=== PATIENT | female | born 1985 | race Caucasian/White ===

== ENCOUNTER 2019-04-03 20:54 | Emergency (ER) | payer SELFPAY ==
[2019-04-03] MEDS ORDERED: KETOROLAC 30 MG/ML INJ ONE (21:40)
[2019-04-03] MEDS ORDERED: CLINDAMYCIN IV 150 MG/ML (4 mL) VIAL ONE (21:40)
--- NOTE | 2019-04-03 22:06 | ER ---
Nurse's Notes [facility] Name: Saloni Ireland Age: 34 yrs Sex: Female : 1985 Arrival Date: 04/03/2019 Time: 20:57 Bed 26 Private MD: Diagnosis: Cellulitis of finger Presentation: 04/03 21:07 Presenting complaint: Patient states: I was moving palm and the palm frond thing stuck la1 in the base of my index finger on my right hand, now it hurts to bend that joint. Transition of care: patient was not received from another setting of care. Onset of symptoms was April 03, 2019. Risk Assessment: Do you want to hurt yourself or someone else? Patient reports no desire to harm self or others. Initial Sepsis Screen: Does the patient meet any 2 criteria? No. Patient's initial sepsis screen is negative. Does the patient have a suspected source of infection? No. Patient's initial sepsis screen is negative. Care prior to arrival: None. 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 - Social history:: Smoking status: Patient uses tobacco products, smokes one-half pack cigarettes per day. - Ebola Screening: : No symptoms or risks identified at this time. Screenin:10 Abuse screen: Denies threats or abuse. Nutritional screening: No deficits noted. la1 Tuberculosis screening: No symptoms or risk factors identified. Fall Risk None identified. Assessment: 21:09 General: Appears in no apparent distress. Behavior is calm, cooperative. Pain: la1 Complains of pain in dorsal aspect of proximal phalanx of right index finger. Neuro: Level of Consciousness is awake, alert, obeys commands, Oriented to person, place, time, situation. Cardiovascular: Capillary refill < 3 seconds Patient's skin is warm and dry. Respiratory: Airway is patent Respiratory effort is even, unlabored, Respiratory pattern is regular, symmetrical. GI: No signs and/or symptoms were reported involving the gastrointestinal system. : No signs and/or symptoms were reported regarding the genitourinary system. Musculoskeletal: Circulation, motion, and sensation intact. Capillary refill < 3 seconds, is brisk, in bilateral fingers. Range of motion: intact in all extremities, Swelling present in dorsal aspect of proximal phalanx of right index finger. Vital Signs: 21:08 BP 121 / 69; Pulse 86; Resp 16; Temp 98.6; Pulse Ox 100% on R/A; Weight 65.77 kg; la1 Height 5 ft. 7 in. (170.18 cm); 22:16 BP 118 / 66; Pulse 79; Resp 15; Temp 98.5; Pulse Ox 100% on R/A; rv 21:08 Body Mass Index 22.71 (65.77 kg, 170.18 cm) la1 ED Course: 20:57 Patient arrived in ED. cf2 21:01 Timothy Cavanaugh MD is Attending Physician. tw4 21:02 Lamberto Rodriguez RN is Primary Nurse. la1 21:07 Triage completed. la1 21:09 Arm band placed on left wrist. la1 21:10 Patient has correct armband on for positive identification. la1 22:16 No provider procedures requiring assistance completed. Patient did not have IV access rv during this emergency room visit. Administered Medications: 21:46 Drug: TORadol 60 mg Route: IM; Site: right gluteus; la1 22:16 Follow up: Response: No adverse reaction rv 21:46 Drug: Clindamycin 600 mg Route: IM; Site: left gluteus; la1 22:16 Follow up: Response: No adverse reaction rv Outcome: 22:05 Discharge ordered by . tw4 22:17 Discharged to home ambulatory, with family. rv 22:17 Condition: good 22:17 Discharge instructions given to patient, Instructed on discharge instructions, follow up and referral plans. medication usage, Demonstrated understanding of instructions, follow-up care, medications, Prescriptions given X 2. 22:17 Patient left the ED. rv Signatures: Labmerto Rodriguez RN RN la1 Timothy Cavanaugh MD MD tw4 Ady Liu RN RN rv [place], [place] cf2
--- NOTE | 2019-04-03 22:07 | EDPHYS ---
Physician Documentation [facility] Name: Saloni Ireland Age: 34 yrs Sex: Female : 1985 Arrival Date: 04/03/2019 Time: 20:57 Bed 26 Private MD: ED Physician Timothy Cavanaugh HPI: 04/04 01:57 This 34 yrs old Female presents to ER via Ambulatory with complaints of Hand tw4 Pain. 01:57 The patient or guardian reports a puncture wound, thorn. The complaints affect the MCP tw4 of right index finger. Context: The problem was sustained outdoors, resulted from puncture wound. Onset: The symptoms/episode began/occurred today. Modifying factors: The symptoms are alleviated by nothing, the symptoms are aggravated by movement. Associated signs and symptoms: The patient has no apparent associated signs or symptoms. The patient has not experienced similar symptoms in the past. 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 - Social history:: Smoking status: Patient uses tobacco products, smokes one-half pack cigarettes per day. - Ebola Screening: : No symptoms or risks identified at this time. ROS: 04/04 01:57 Constitutional: Negative for fever, chills, and weight loss, Eyes: Negative for injury, tw4 pain, redness, and discharge, Cardiovascular: Negative for chest pain, palpitations, and edema, Respiratory: Negative for shortness of breath, cough, wheezing, and pleuritic chest pain, Abdomen/GI: Negative for abdominal pain, nausea, vomiting, diarrhea, and constipation, Skin: Negative for injury, rash, and discoloration, Neuro: Negative for headache, weakness, numbness, tingling, and seizure. MS/extremity: Positive for decreased range of motion, pain, puncture. Exam: 01:57 Constitutional: This is a well developed, well nourished patient who is awake, alert, tw4 and in no acute distress. Head/Face: Normocephalic, atraumatic. Cardiovascular: Regular rate and rhythm with a normal S1 and S2. No gallops, murmurs, or rubs. Normal PMI, no JVD. No pulse deficits. Respiratory: Lungs have equal breath sounds bilaterally, clear to auscultation and percussion. No rales, rhonchi or wheezes noted. No increased work of breathing, no retractions or nasal flaring. Abdomen/GI: Soft, non-tender, with normal bowel sounds. No distension or tympany. No guarding or rebound. No evidence of tenderness throughout. Neuro: Awake and alert, GCS 15, oriented to person, place, time, and situation. Cranial nerves II-XII grossly intact. Motor strength 5/5 in all extremities. Sensory grossly intact. Cerebellar exam normal. Normal gait. Psych: Awake, alert, with orientation to person, place and time. Behavior, mood, and affect are within normal limits. 01:57 Musculoskeletal/extremity: Extremities: noted in the dorsal aspect of proximal phalanx of right index finger: decreased ROM, pain, puncture. Vital Signs: 04/03 21:08 BP 121 / 69; Pulse 86; Resp 16; Temp 98.6; Pulse Ox 100% on R/A; Weight 65.77 kg; la1 Height 5 ft. 7 in. (170.18 cm); 22:16 BP 118 / 66; Pulse 79; Resp 15; Temp 98.5; Pulse Ox 100% on R/A; rv 21:08 Body Mass Index 22.71 (65.77 kg, 170.18 cm) la1 MDM: 21:01 Patient medically screened. tw4 04/04 01:57 Differential diagnosis: closed fracture, contusion, abrasion, tendonitis. Data tw4 reviewed: vital signs, nurses notes. Counseling: I had a detailed discussion with the patient and/or guardian regarding: the historical points, exam findings, and any diagnostic results supporting the discharge/admit diagnosis, lab results. Medication response: Special discussion: I discussed with the patient/guardian in detail that at this point there is no indication for admission to the hospital. It is understood, however, that if the symptoms persist or worsen the patient needs to return immediately for re-evaluation. Administered Medications: 04/03 21:46 Drug: TORadol 60 mg Route: IM; Site: right gluteus; la1 22:16 Follow up: Response: No adverse reaction rv 21:46 Drug: Clindamycin 600 mg Route: IM; Site: left gluteus; la1 22:16 Follow up: Response: No adverse reaction rv Disposition: 04/03/19 22:05 Discharged to Home. Impression: Cellulitis of finger. - Condition is Stable. - Discharge Instructions: Cellulitis, Adult. - Prescriptions for Clindamycin HCl 300 mg Oral Capsule - take 1 capsule by ORAL route every 6 hours for 10 days; 40 capsule. Ibuprofen 800 mg Oral Tablet - take 1 tablet by ORAL route every 8 hours As needed take with food; 30 tablet. - Medication Reconciliation Form, Thank You Letter, Antibiotic Education, Prescription Opioid Use form. - Follow up: Private Physician; When: Upon discharge from the Emergency Department; Reason: If symptoms return, Recheck today's complaints, Continuance of care. - Problem is new. - Symptoms have improved. Signatures: Lamberto Rodriguez, RN RN la1 Timothy Cavanaugh MD MD tw4 Ady Liu RN RN rv Corrections: (The following items were deleted from the chart) 22:17 22:05 04/03/2019 22:05 Discharged to Home. Impression: Cellulitis of finger. Condition rv is Stable. Forms are Medication Reconciliation Form, Thank You Letter, Antibiotic Education, Prescription Opioid Use. Follow up: Private Physician; When: Upon discharge from the Emergency Department; Reason: If symptoms return, Recheck today's complaints, Continuance of care. Problem is new. Symptoms have improved. tw4
[2019-04-03 23:01] VITALS: O2SAT 100
[2019-04-03 23:03] VITALS: BP 118/66; TEMP 98.5
== END 2019-04-03 22:17 | disposition home or self-care (01) ==
LOC: ER 20:54
DX: L03.011 Cellulitis of right finger (principal); F17.210 Nicotine dependence, cigarettes, uncomplicated
CPT/HCPCS: 96372; 99283; S0077

== ENCOUNTER 2019-04-26 11:48 | Emergency (ER) | payer SELFPAY ==
[2019-04-26 12:30] LABS: Urine Blood 3+ (NEG); Urine Glucose NEGATIVE (NEG); Urine Protein NEGATIVE (NEG); Urine Specific Gravity <1.005 (1.005-1.030); Urine pH 6.5 (5.0-7.0)
[2019-04-26 12:43] LABS: Urine Bacteria 20-50 /HPF (<20); Urine Culture Reflex Order REFLEXED; Urine RBC <5 /HPF (NONE SEEN)
[2019-04-26] MEDS ORDERED: NA CHLORIDE 0.9% 1,000 ML ONE (12:47)
[2019-04-26] MEDS ORDERED: CEFTRIAXONE/SWI 1gm 1 GM/10 ML SYR ONE (12:47)
[2019-04-26 12:59] LABS: Absolute Lymphocytes (CBC) 1.6 K/uL (0.7-4.9); Basophils % 0.6 % (0-1.3); Hematocrit 35.7 % (36.0-45.0); Lymphocytes % 15.3 % (15.3-44.8); MPV 8.2 fL (7.6-11.3); RBC Red Blood Cell Count 4.06 M/uL (3.86-4.86)
[2019-04-26 13:08] LABS: ALT/SGPT 21 U/L (12-78); AST/SGOT 13 U/L (15-37); Alkaline Phosphatase 67 U/L (45-117); BUN Blood Urea Nitrogen 9 mg/dL (7-18); Bicarbonate 26 mmol/L (21-32); Bilirubin Direct < 0.1 mg/dL (0-0.2); Bilirubin Total 0.3 mg/dL (0.2-1.0); Glucose Level 69 mg/dL (74-106); Lipase 78 U/L (73-393); Potassium 3.7 mmol/L (3.5-5.1); Protein, Total 7.5 g/dL (6.4-8.2); Sodium Level 141 mmol/L (136-145)
--- NOTE | 2019-04-26 13:39 | RAD REPORT ---
EXAM DESCRIPTION: CT - Abdomen Pelvis W Contrast - 04/26/2019 1:25 pm CLINICAL HISTORY: Abdominal pain/hematuria COMPARISON: 2008 TECHNIQUE: Computed axial tomography of the abdomen pelvis was obtained. 100 cc Isovue-300 was admin istered intravenously. Oral contrast was not requested which limits evaluation of bowel. All CT scans are performed using dose optimization technique as appropriate and may include automated exposure control or mA/KV adjustment according to patient size. FINDINGS: The liver, spleen, pancreas, and adrenals appear unremarkable. Right kidney unremarkable. Enhancement of the wall of the left renal pelvis and proximal left ureter There is no evidence of diverticulitis. Normal appendix Small umbilical hernia IMPRESSION: Enhancement of the wall of the left renal pelvis and proximal left ureter can indicate i nfection/inflammation
--- NOTE | 2019-04-26 14:10 | EDPHYS ---
Physician Documentation [facility] Name: Saloni Ireland Age: 34 yrs Sex: Female : 1985 Arrival Date: 04/26/2019 Time: 11:51 Bed 11 Private MD: None, None ED Physician Sameer Casillas HPI: 04/26 12:06 This 34 yrs old Female presents to ER via Ambulatory with complaints of pm1 Urinary Problem. 12:06 The patient presents with urinary symptoms, Burning with urination. pm1 12:06 Onset: The symptoms/episode began/occurred 2 day(s) ago. Modifying factors: The pm1 symptoms are alleviated by nothing, the symptoms are aggravated by urinating. Associated signs and symptoms: Pertinent positives: left flank pain, suprapubic pain, Pertinent negatives: diarrhea, fever, nausea, vomiting. Severity of symptoms: in the emergency department the symptoms are actually worse. The patient has experienced a previous episode, and the symptoms today are exactly the same, many years ago. The patient has not recently seen a physician. 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 - Social history:: Smoking status: Patient/guardian denies using tobacco. - Ebola Screening: : No symptoms or risks identified at this time. ROS: 12:06 Positive for flank pain, burning with urination, Negative for vaginal bleeding, pm1 vaginal discharge. 12:06 Constitutional: Negative for fever, chills, and weight loss, Neck: Negative for injury, pain, and swelling, Cardiovascular: Negative for chest pain, palpitations, and edema, Respiratory: Negative for shortness of breath, cough, wheezing, and pleuritic chest pain, Abdomen/GI: Negative for abdominal pain, nausea, vomiting, diarrhea, and constipation. 12:06 MS/Extremity: Negative for injury and deformity, Skin: Negative for injury, rash, and discoloration. 12:06 Neuro: Negative for headache, weakness, numbness, tingling, and seizure. 12:06 Back: Positive for flank pain, on the left. 12:06 : Positive for flank pain, burning with urination, of the right low back. Exam: 12:06 Constitutional: This is a well developed, well nourished patient who is awake, alert, pm1 and in no acute distress. Head/Face: Normocephalic, atraumatic. Neck: Trachea midline, no thyromegaly or masses palpated, and no cervical lymphadenopathy. Supple, full range of motion without nuchal rigidity, or vertebral point tenderness. No Meningismus. Chest/axilla: Normal chest wall appearance and motion. Nontender with no deformity. No lesions are appreciated. Cardiovascular: Regular rate and rhythm with a normal S1 and S2. No gallops, murmurs, or rubs. Normal PMI, no JVD. No pulse deficits. Respiratory: Lungs have equal breath sounds bilaterally, clear to auscultation and percussion. No rales, rhonchi or wheezes noted. No increased work of breathing, no retractions or nasal flaring. Abdomen/GI: Soft, non-tender, with normal bowel sounds. No distension or tympany. No guarding or rebound. No evidence of tenderness throughout. 12:06 Skin: Warm, dry with normal turgor. Normal color with no rashes, no lesions, and no evidence of cellulitis. MS/ Extremity: Pulses equal, no cyanosis. Neurovascular intact. Full, normal range of motion. 12:06 Back: pain, that is mild, of the right low back, normal spinal alignment noted. 12:06 Neuro: Orientation: is normal, Motor: is normal, moves all fours. Vital Signs: 11:55 BP 122 / 88; Pulse 80; Resp 18; Temp 97.8; Pulse Ox 99% on R/A; Weight 68.04 kg; Height ph 5 ft. 7 in. (170.18 cm); Pain 7/10; 11:55 Body Mass Index 23.49 (68.04 kg, 170.18 cm) ph MDM: 11:58 Patient medically screened. pm1 14:08 Data reviewed: vital signs. Data interpreted: Pulse oximetry: on room air is 99 %. pm1 Interpretation: normal. Counseling: I had a detailed discussion with the patient and/or guardian regarding: the historical points, exam findings, and any diagnostic results supporting the discharge/admit diagnosis, lab results, radiology results, the need for outpatient follow up, to return to the emergency department if symptoms worsen or persist or if there are any questions or concerns that arise at home. 04/26 11:58 Order name: Urine Microscopic Only; Complete Time: 13:11 pm1 04/26 12:21 Order name: Urine Dipstick--Ancillary (enter results); Complete Time: 12:37 em1 04/26 12:26 Order name: Basic Metabolic Panel; Complete Time: 13:11 pm1 04/26 12:26 Order name: CBC with Diff; Complete Time: 13:11 pm1 04/26 12:26 Order name: Creatinine for Radiology; Complete Time: 13:11 pm1 04/26 12:26 Order name: Hepatic Function; Complete Time: 13:11 pm1 04/26 11:58 Order name: Urine Dipstick-Ancillary (obtain specimen); Complete Time: 12:13 pm1 04/26 12:26 Order name: Lipase; Complete Time: 13:11 pm1 04/26 12:26 Order name: Test, Serum; Complete Time: 13:36 pm1 04/26 12:26 Order name: CT Abd/Pelvis - IV Contrast Only; Complete Time: 14:03 pm1 04/26 12:44 Order name: Urine Culture [facility] 04/26 11:58 Order name: Urine Test (obtain specimen); Complete Time: 12:13 pm1 04/26 12:26 Order name: IV Saline Lock; Complete Time: 12:42 pm1 04/26 12:26 Order name: Labs collected and sent; Complete Time: 12:42 pm1 Administered Medications: 12:52 Drug: Rocephin 1 grams Route: IV; Rate: calculated rate; Site: right antecubital; ss 12:54 Follow up: IV Status: Completed infusion ss 12:52 Drug: NS 0.9% 1000 ml Route: IV; Rate: 1000 ml; Site: right antecubital; ss 14:23 Follow up: IV Status: Completed infusion; IV Intake: 1000ml ss 14:23 Drug: Cipro 500 mg Route: PO; ss 14:23 Follow up: Response: Medication administered at discharge. ss Disposition: 04/27 07:28 Co-signature as Attending Physician, Sameer Casillas MD I agree with the assessment and kdr plan of care. Disposition: 04/26/19 14:09 Discharged to Home. Impression: Urinary tract infection, site not specified - left sided pyelonephritis. - Condition is Stable. - Discharge Instructions: Pyelonephritis, Adult, Urinary Tract Infection, Adult. - Prescriptions for Cipro 500 mg Oral Tablet - take 1 tablet by ORAL route every 12 hours for 7 days; 14 tablet. - Work release form, Medication Reconciliation Form, Thank You Letter, Antibiotic Education, Prescription Opioid Use form. - Follow up: Emergency Department; When: As needed; Reason: Worsening of condition. Follow up: Private Physician; When: 2 - 3 days; Reason: Recheck today's complaints, Continuance of care, Re-evaluation by your physician. - Problem is new. - Symptoms have improved. Signatures: Dispatcher [employer] EDMS Sameer Casillas MD MD [facility] Yanely Calvillo RN RN ss Ai Parr RN RN Kieran Vazquez, SUDHAKAR CONSUMER LOAN UNDERWRITER pm1 Corrections: (The following items were deleted from the chart) 04/26 14:32 14:09 04/26/2019 14:09 Discharged to Home. Impression: Urinary tract infection, site ss not specified - left sided pyelonephritis. Condition is Stable. Forms are Medication Reconciliation Form, Thank You Letter, Antibiotic Education, Prescription Opioid Use. Follow up: Emergency Department; When: As needed; Reason: Worsening of condition. Follow up: Private Physician; When: 2 - 3 days; Reason: Recheck today's complaints, Continuance of care, Re-evaluation by your physician. Problem is new. Symptoms have improved. pm1
--- NOTE | 2019-04-26 14:10 | ER ---
Nurse's Notes [facility] Name: Saloni Ireland Age: 34 yrs Sex: Female : 1985 Arrival Date: 04/26/2019 Time: 11:51 Bed 11 Private MD: None, None Diagnosis: Urinary tract infection, site not specified-left sided pyelonephritis Presentation: 04/26 11:54 Presenting complaint: Patient states: Burning w/ urination and frequency x 2 days, ph blood in urine today, also c/o lower abdominal pain, denies fever, N/V. Transition of care: patient was not received from another setting of care. Onset of symptoms was April 26, 2019. Risk Assessment: Do you want to hurt yourself or someone else? Patient reports no desire to harm self or others. Initial Sepsis Screen: Does the patient meet any 2 criteria? No. Patient's initial sepsis screen is negative. Does the patient have a suspected source of infection? Yes: Dysuria/Frequency/Urgency/UTI. Care prior to arrival: None. 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 - Social history:: Smoking status: Patient/guardian denies using tobacco. - Ebola Screening: : No symptoms or risks identified at this time. Screenin:42 Abuse screen: Denies threats or abuse. Denies injuries from another. Nutritional ss screening: No deficits noted. Tuberculosis screening: Never had TB. Fall Risk None identified. Assessment: 12:00 General: Appears in no apparent distress. comfortable, well groomed, Behavior is calm, ph cooperative, appropriate for age, Denies fever, chills. Pain: Complains of pain in suprapubic area, right lower quadrant and left lower quadrant. Neuro: Level of Consciousness is awake, alert, obeys commands, Oriented to person, place, time, situation. Cardiovascular: Capillary refill < 3 seconds in bilateral fingers Patient's skin is warm and dry. Respiratory: Airway is patent Respiratory effort is even, unlabored. GI: Reports lower abdominal pain, Patient currently denies nausea, vomiting. : Reports burning with urination, pain in suprapubic area urinary frequency, blood in urine. Derm: Skin is intact, is healthy with good turgor, Skin is pink, warm \T\ dry. Musculoskeletal: Circulation, motion, and sensation intact. Range of motion: intact in all extremities. 12:42 Reassessment: labs sent, awaiting results. ss Vital Signs: 11:55 BP 122 / 88; Pulse 80; Resp 18; Temp 97.8; Pulse Ox 99% on R/A; Weight 68.04 kg; Height ph 5 ft. 7 in. (170.18 cm); Pain 7/10; 11:55 Body Mass Index 23.49 (68.04 kg, 170.18 cm) ph ED Course: 11:51 Patient arrived in ED. mr 11:51 None, None is Private Physician. mr 11:55 Triage completed. ph 11:56 Arm band placed on Patient placed in an exam room. ph 11:57 Kieran Abad NP is PHCP. pm1 11:57 Sameer Casillas MD is Attending Physician. pm1 12:13 Yanely Calvillo RN is Primary Nurse. ss 12:42 Patient has correct armband on for positive identification. Bed in low position. Call ss light in reach. 12:42 Inserted saline lock: 22 gauge in right antecubital area, using aseptic technique. ss Blood collected. 13:26 CT Abd/Pelvis - IV Contrast Only In Process Unspecified. EDMS 14:23 No provider procedures requiring assistance completed. IV discontinued, intact, ss bleeding controlled, No redness/swelling at site. Pressure dressing applied. Administered Medications: 12:52 Drug: Rocephin 1 grams Route: IV; Rate: calculated rate; Site: right antecubital; 12:54 Follow up: IV Status: Completed infusion 12:52 Drug: NS 0.9% 1000 ml Route: IV; Rate: 1000 ml; Site: right antecubital; ss 14:23 Follow up: IV Status: Completed infusion; IV Intake: 1000ml 14:23 Drug: Cipro 500 mg Route: PO; ss 14:23 Follow up: Response: Medication administered at discharge. Intake: 14:23 IV: 1000ml; Total: 1000ml. Outcome: 14:09 Discharge ordered by . pm1 14:23 Discharged to home ambulatory. 14:23 Condition: good 14:23 Discharge instructions given to patient, significant other, Instructed on discharge instructions, follow up and referral plans. medication usage, Demonstrated understanding of instructions, follow-up care, medications, Prescriptions given X 1. 14:32 Patient left the ED. Addendum: 04/29/2019 07:34 Addendum: Culture Results: Positive urine culture. No further action required. Bacteria a a5 sensitive to prescribed antibiotic. Signatures: Dispatcher [employer] EDNY Renea Ramos Audri, RN RN aa5 Yanely Calvillo RN RN ss Hall, Patricia, RN RN ph Marinas, Patrick, SUDHAKAR CHEMICAL INSPECTOR pm1
[2019-04-26] MEDS ORDERED: CIPROFLOXACIN HCL 500 MG TAB ONE (14:21)
[2019-04-26 16:15] VITALS: BP 122/88; TEMP 97.8; O2SAT 99
== END 2019-04-26 14:32 | disposition home or self-care (01) ==
LOC: ER 11:48
DX: N39.0 Urinary tract infection, site not specified (principal); N12 Tubulo-interstitial nephritis, not specified as acute or chronic
CPT/HCPCS: 36415; 74177; 80048; 80076; 81003; 81015; 83690; 84703; 85025; 87077; 87086; 87088; 87186; 96361; 96374; 99284; J0696; J7030; Q9967

== ENCOUNTER 2022-05-26 21:24 | Emergency (ER) | payer SELFPAY ==
--- OUTSIDE RECORDS SUMMARY | 2022-05-26 21:27 | XMS REPORT | Continuity of Care Document ---
:1985 Author Organization [facility] t Address [address] [place] [address] Care Team Providers Name Role Phone Asked, No Pcp Primary Care Physician Unavailable Remy Mars Attending Clinician Unavailable Yuki PROCTOR, Bertin Haque Attending Clinician Jenise Escobar Attending Clinician Provider, [facility] Attending Clinician Unavailable JENISE CERDA Attending Clinician Unavailable Physician, No Primary or Family Admitting Clinician Unavaila ble Payers Payer Name Policy Type Policy Number Effective Date Expiration Date S ource Problems Condition Condition Condition Status Onset Resolution Last Treating Co mments Source Name Details Category Date Date Treatment Clinician Date No known No known Disease Unive rs active active ity of problems problems [facility] Allergies, Adverse Reactions, Alerts Allergy Allergy Status Severity Reaction(s) Onset Inactive Treating Comm ents Source Name Type Date Date Clinician No Known DA Active U 2020-06 [facility] Allergie 2-16 Clear s 00:00: [place] [address] [facility] NO KNOWN Drug Active Univers ALLERGIE Class ity of S [facility] Social History Social Habit Start Date Stop Date Quantity Comments Source Exposure to Not sure University of SARS-CoV-2 [facility] (event) [place] Tobacco use and 2020-03-20 2020-03-20 Former user Universi ty of exposure 00:00:00 00:00:00 [facility] History of 2019-03-27 Cigarette Smoker Universi ty of tobacco use 00:00:00 [facility] Sex Ass[birth year] [facility] 00:00:00 00:00:00 Smoking Status Start Date Stop Date Source Tobacco smoking [facility] consumption unknown Former smoker 2020-03-20 00:00:00 2020-03-20 Kinde o [facility] 00:00:00 [facility] Branch Medications Ordered Filled Start Stop Current Ordering Indication Dosage Frequency Signature Comments Components Source Medication Medication Date Date Medication? Clinician (SIG) Name Name cefdinir 2020-06 No 300mg Q.5D Take 1 Metho di (OMNICEF) 1-20 11-[address] 300 MG 00:00: 05:59 (300 mg [facility]osp[facility] capsule 00 :00 total) by l mouth 2 (two) times a day for 7 days. acetaminoph 2020-06 No [id number] 1{tbl} Q6H Take 1-2 Methodi en-codeine 1-20 11-[address] (TYLENOL 00:00: 05:59 mouth [facility] WITH 00 :00 every 6 l CODEINE #3) (six) 300-30 mg hours as per tablet needed for moderate pain for up to 4 days .acute pain. benzonatate 2019-06 Yes [id number] 100mg Take 1 Univers (TESSALON 0-08 capsule by itfani of ADAM) 100 00:00: mouth 3 Philipp as mg capsule 00 (three) Medica l times Branch daily. azelastine 2019-06 Yes [id number] 1{spray Use 1 Univers 137 mcg 0-08 } [facility] in ity of (0.1 %) 00:00: each [place] nasal spray 00 nostril 2 Med ical (two) Branch times daily. Use in each nostril as directed benzonatate 2019-06 Yes [id number] 100mg Take 1 Univers (TESSALON 0-08 capsule by ity of PERLES) 100 00:00: mouth 3 Philipp as mg capsule 00 (three) Medica l times Branch daily. azelastine 2019-06 Yes [id number] 1{spray Use 1 Univers 137 mcg 0-08 } [facility] in ity of (0.1 %) 00:00: each [place] nasal spray 00 nostril 2 Med ical (two) Branch times daily. Use in each nostril as directed Vital Signs Vital Name Observation Time Observation Value Comments Source Systolic blood 2020-03-20 14:50:00 120 mm[Hg] Univer sity of pressure [facility] Diastolic blood 2020-03-20 14:50:00 82 mm[Hg] Unive rsity of pressure [facility] [place] [facility] Heart rate 2020-03-20 14:50:00 63 /min Universi ty of [facility] [place] [facility] Body temperature 2020-03-20 14:50:00 36.89 Karuna Univ ersity of [facility] Respiratory rate 2020-03-20 14:50:00 18 /min Univ ersity of [facility] Body height 2020-03-20 14:50:00 170.2 cm Universi ty of [place] [facility] Body weight 2020-03-20 14:50:00 85.911 kg [facility]i ty [facility] [place] [facility] BMI 2020-03-20 14:50:00 29.66 kg/m2 Universi ty of [facility] Branch Oxygen saturation in 2020-03-20 14:50:00 98 /min University of Arterial blood by [place] [employer] joaquina Pulse oximetry Branch Systolic blood 2020-03-20 14:50:00 120 mm[Hg] Univer sity of pressure [place] [facility] Diastolic blood 2020-03-20 14:50:00 82 mm[Hg] Unive rsity of pressure [facility] [place] [facility] Heart rate 2020-03-20 14:50:00 63 /min Universi ty of [place] [facility] Body temperature 2020-03-20 14:50:00 36.89 Karuna Univ ersity of [facility] Respiratory rate 2020-03-20 14:50:00 18 /min Univ ersity of [facility] Body height 2020-03-20 14:50:00 170.2 cm Universi ty of [place] [facility] [place] Body weight 2020-03-20 14:50:00 85.911 kg [facility]i ty [facility] [place] [facility] BMI 2020-03-20 14:50:00 29.66 kg/m2 Universi ty of [facility] Oxygen saturation in 2020-03-20 14:50:00 98 /min University of Arterial blood by [place] [employer] joaquina Pulse oximetry Branch Body height 2021-05-02 21:58:00 170.2 cm [facility] Body weight 2021-05-02 21:58:00 81.285 kg [facility] BMI 2021-05-02 21:58:00 28.07 kg/m2 [facility] Systolic blood 2021-05-02 21:57:54 109 mm[Hg] [facility] Hospital pressure Diastolic blood 2021-05-02 21:57:54 66 mm[Hg] [facility] Hospital pressure Heart rate 2021-05-02 21:57:54 88 /min [facility] Body temperature 2021-05-02 21:57:54 36.56 Karuna [facility] Respiratory rate 2021-05-02 21:57:54 20 /min [facility] Oxygen saturation in 2021-05-02 21:57:54 96 /min [facility] Arterial blood by Pulse oximetry Procedures Procedure Date / Time Performed Performing Clinician Sourc e URINE CULTURE 2021-05-02 23:03:00 [facility] URINALYSIS SCREEN AND 2021-05-02 22:17:00 [facility] MICROS[facility], WITH REFLEX TO CULTURE HCG QUALITATIVE, URINE 2021-05-02 22:17:00 [facility] SCREEN Encounters Start End Encounter Admission Attending Care Care Encounter Source Date/Time Date/Time Type Type Clinicians Facility Department ID 2021-05-28 2021-05-28 Emergency EM [place], HCACL AERS [id number] [facility] 18:34:00 19:35:00 Remy Hernandez [facility] 2021-05-02 2021-05-02 Emergency Riven[place], 1.2.840.1 [id number] Methodi 15:59:00 17:33:00 Bertin Haque [id number] 3.430.2.7 Hospit a .[id number] l .8 2021-05-02 2021-05-02 Travel 1.2.840.1 [id number] Methodi 00:00:00 00:00:[id number] 3.430.2.7 0.2.7.3.698 Ho spita .[id number] 084.8 l .8 2020-03-23 2020-03-23 Telephone Zaida [facility] [id number] 00:00:00 00:00:00 [facility] 350.1.13.10 i ty of Surgical 4.2.7.2.686 Philipp as Specialti [id number] [facility] 2020-03-23 2020-03-23 [facility] [id number] 2023 00:00:00 00:00:00 [facility] 350.1.13.10 Surgical 4.2.7.2.686 Specialti [phone] es [address] [place] [address] 2020-03-20 2020-03-20 Urgent Provider, [facility] Urgent Care [facility] [id number] Univers 09:00:58 09:20:58 Care [facility] 350.1.13.10 ity of [place] 4.2.7.2.686 Philipp as Professio [phone] [facility] [address] [place] [address] [facility] 2020-03-20 2020-03-20 Urgent Provider, [facility] [id number] 09:00:58 09:20:58 Care [facility] 350.1.13.10 Care [place] 4.2.7.2.686 Professio [phone] [place] [address] [address] [facility] 2020-03-20 2020-03-20 Outpatient R ZAIDA [facility] [id number] Univers 08:40:00 08:40:[address] [facility] Results Test Description Test Time Test Comments Results Result Comments Source INFLUENZA A B POC 2021-05-28 19:18:00 Test Item Value Reference Range Interpretation Comme nts INFLUENZA A POC (test code = NEGATIVE NEGATIVE INFLAAG) INFLUENZA B POC (test code = NEGATIVE NEGATIVE Performed by certified subsurface augmentee operator at [facility]) [facility] CtrID-NOW Influenza A&B assay is a rapid molecular in vitro diagnosti c test utilizing an isothermal nucl eic acidamplification technology for the qualitative detectionand di scrimination of influenza A and B viral RNA. Coronavirus 2019 nCoV [id number] 19:12:00 Test Item Value Reference Range Interpretation Comments Coronavirus 2018 Positive Negative A Performed b y certified nCoV Bedside (vacuum tester cans at [facility] code = CtrNegative res ults should [id number]) be treated as presumptive and, ifinconsis tent with clinical signs and symptoms or necessaryfor patient management, julieta uld be tested with an alternativemole cular assay. Negative result s do not preclude [id number] tion and should not be u sed as the sole basis forp atient management deci sions. Negative result s should beconsidered in the context of a patient's recent exposures,histo ry, presence of clinical sig ns and symptoms consis tentwith COVID-19.
[2022-05-26] MEDS ORDERED: LIDOCAINE 1% MPF 5 ML VIAL ONE (22:28)
--- NOTE | 2022-05-26 23:32 | ER ---
Nurse's Notes [facility] Name: Saloni Ireland Age: 37 yrs Sex: Female : 1985 Arrival Date: 05/26/2022 Time: 21:26 Bed 11 Private MD: Diagnosis: Cutaneous abscess of groin;Otalgia, left ear Presentation: 05/26 21:46 Chief complaint: Patient states: she has been fighting an ear infection since April with left ear pain and has a boil near her vagina x 2 days. Coronavirus screen: At this time, the client does not indicate any symptoms associated with coronavirus-19. Ebola Screen: No symptoms or risks identified at this time. Initial Sepsis Screen: Does the patient meet any 2 criteria? No. Patient's initial sepsis screen is negative. Does the patient have a suspected source of infection? No. Patient's initial sepsis screen is negative. Risk Assessment: Do you want to hurt yourself or someone else? Patient reports no desire to harm self or others. Onset of symptoms was May 04, 2022. 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 - Social history:: Smoking status: Patient reports the use of cigarette tobacco products. Screenin:49 [facility] ED Fall Risk Assessment (Adult) History of falling in the last 3 months, bb including since admission No falls in past 3 months (0 pts). Abuse screen: Denies threats or abuse. Nutritional screening: No deficits noted. Tuberculosis screening: No symptoms or risk factors identified. Assessment: 21:49 General: Appears in no apparent distress. uncomfortable, Behavior is calm, cooperative. bb Pain: Complains of pain in left ear Pain currently is 8 out of 10 on a pain scale. Neuro: Level of Consciousness is awake, alert, obeys commands, Oriented to person, place, time, situation. Cardiovascular: Capillary refill < 3 seconds Patient's skin is warm and dry. Respiratory: Respiratory effort is even, unlabored, Respiratory pattern is regular. GI: No signs and/or symptoms were reported involving the gastrointestinal system. EENT: Reports pain in left ear. Derm: Reports boil to vaginal area. Musculoskeletal: Circulation, motion, and sensation intact. 23:55 Reassessment: Patient is alert, oriented x 3, equal unlabored respirations, skin bb warm/dry/pink. pt verbalized understanding of and agrees to plan of care discharge instructions given pt ambulated with steady gait to exit. Vital Signs: 21:46 BP 100 / 53; Pulse 67; Resp 16 S; Temp 98.7(O); Pulse Ox 99% on R/A; Weight 68.04 kg bb (R); Height 5 ft. 7 in. (170.18 cm) (R); Pain 8/10; 23:57 BP 99 / 58; Pulse 53; Resp 16 S; Temp 98.5(O); Pulse Ox 99% on R/A; bb 21:46 Body Mass Index 23.49 (68.04 kg, 170.18 cm) bb ED Course: 21:26 Patient arrived in ED. [id number] 21:39 Lexie [facility]oria [facility]NP-C [facility] kb 21:39 Sameer Casillas MD is Attending Physician. kb 21:48 Triage completed. bb 21:48 Arm band placed on Patient placed in an exam room, on a stretcher, on pulse oximetry. bb 21:49 Patient has correct armband on for positive identification. Call light in reach. Side bb rails up X 1. 22:20 Marcie Sarmiento RN is Primary Nurse. bb 23:56 Assist provider with I \T\ D: of an abscess on Set up I\T\D tray. Performed by Lexie ORTEGA Patient tolerated well. Patient did not have IV access during this emergency room visit. Administered Medications: 23:30 Drug: Lidocaine (1 %) 5 mg {Note: by Lexie Soria TRIMMER AND REINFORCER to affected area.} Route: bb Infiltration; 23:56 Follow up: Response: No adverse reaction bb Medication: 21:49 VIS not applicable for this client. bb Outcome: 23:31 Discharge ordered by . kb 23:57 Discharged to home ambulatory. bb 23:57 Condition: stable 23:57 Discharge instructions given to patient, Instructed on discharge instructions, follow up and referral plans. medication usage, wound care, Demonstrated understanding of instructions, follow-up care, medications, wound care, Prescriptions given X 1. 23:57 Patient left the ED. bb Signatures: Lexie Soria, BASKET WEAVER-C BASKET WEAVER-Marcie Carey, RN RN Marizol Sánchez jj6
--- NOTE | 2022-05-26 23:32 | EDPHYS ---
Physician Documentation [facility] Name: Saloni Ireland Age: 37 yrs Sex: Female : 1985 Arrival Date: 05/26/2022 Time: 21:26 Bed 11 Private MD: ED Physician Sameer Casillas HPI: 05/26 23:29 This 37 yrs old Female presents to ER via Ambulatory with complaints of Boil, Ear Pain. kb 23:29 The patient presents with an abscess of the right labia majora. Description: swollen. kb Onset: The symptoms/episode began/occurred today. Possible cause(s): unknown. Associated signs and symptoms: Pertinent positives: swelling, Pertinent negatives: discharge, drainage, erythema, foreign body sensation, fever, headache, nausea, shortness of breath, vomiting. Modifying factors: the symptoms are alleviated by nothing, the symptoms are aggravated by pressure, squeezing the lesion and expressing the contents, touching. Severity of symptoms: At their worst the symptoms were mild, in the emergency department the symptoms are unchanged. The patient has experienced similar episodes in the past, a few times. The patient has not recently seen a physician. Pt reports abscess to vaginal area that she noticed yesterday. Also complains of left ear pain for 2 weeks. 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 - Social history:: Smoking status: Patient reports the use of cigarette tobacco products. ROS: 23:27 Constitutional: Negative for fever, chills, and weight loss. kb 23:27 ENT: Positive for ear pain. 23:27 Skin: Positive for abscess, of the right labia majora. 23:27 All other systems are negative. Exam: 23:28 Constitutional: This is a well developed, well nourished patient who is awake, alert, kb and in no acute distress. Head/Face: Normocephalic, atraumatic. ENT: Moist Mucous membranes Cardiovascular: Regular rate and rhythm with a normal S1 and S2. No gallops, murmurs, or rubs. No pulse deficits. Respiratory: Respirations even and unlabored. No increased work of breathing. Talking in full sentences Abdomen/GI: Soft, non-tender. No distention MS/ Extremity: Pulses equal, no cyanosis. Neurovascular intact. Full, normal range of motion. Neuro: Awake and alert, GCS 15, oriented to person, place, time, and situation. Moves all extremities. Normal gait. Psych: Awake, alert, with orientation to person, place and time. Behavior, mood, and affect are within normal limits. 23:28 Skin: abscess, that is small, of the right labia majora. Vital Signs: 21:46 BP 100 / 53; Pulse 67; Resp 16 S; Temp 98.7(O); Pulse Ox 99% on R/A; Weight 68.04 kg bb (R); Height 5 ft. 7 in. (170.18 cm) (R); Pain 8/10; 23:57 BP 99 / 58; Pulse 53; Resp 16 S; Temp 98.5(O); Pulse Ox 99% on R/A; bb 21:46 Body Mass Index 23.49 (68.04 kg, 170.18 cm) bb Procedures: 23:28 I \T\ D: Incision and drainage was performed for an abscess of the right right labia kb majora Prepped with Betadine, Anesthetized with 1 ml's 1% Lidocaine. Incised with #11 blade. Drained small amount purulent fluid. Dressing: sterile 4x4 gauze, the patient tolerated the procedure well. MDM: 21:57 Patient medically screened. kb 23:22 Data reviewed: vital signs, nurses notes. Data interpreted: Pulse oximetry: on room air kb is 99 %. Interpretation: normal. Counseling: I had a detailed discussion with the patient and/or guardian regarding: the historical points, exam findings, and any diagnostic results supporting the discharge/admit diagnosis, the need for outpatient follow up, a family practitioner, to return to the emergency department if symptoms worsen or persist or if there are any questions or concerns that arise at home. 05/26 22:10 Order name: I\T\D Setup; Complete Time: 22:23 kb Administered Medications: 23:30 Drug: Lidocaine (1 %) 5 mg {Note: by Lexie Soria HOUSEKEEPING LEAD to affected area.} Route: bb Infiltration; 23:56 Follow up: Response: No adverse reaction bb Disposition: 05/27 00:44 Co-signature as Attending Physician, Sameer Casillas MD I agree with the assessment and kdr plan of care. Disposition Summary: 05/26/22 23:31 Discharge Ordered Location: Home kb Condition: Stable kb Diagnosis - Cutaneous abscess of groin kb - Otalgia, left ear kb Followup: kb - With: Emergency Department - When: As needed - Reason: Worsening of condition Followup: kb - With: Private Physician - When: 2 - 3 days - Reason: Recheck today's complaints, Continuance of care, Re-evaluation by your physician Discharge Instructions: - Discharge Summary Sheet kb - Earache, Adult kb - Skin Abscess, [id number] kb - Incision and Drainage, Care After kb Forms: - Medication Reconciliation Form kb - Thank You Letter kb - Antibiotic Education kb - Prescription Opioid Use kb Prescriptions: - Cephalexin 500 mg Oral Capsule - take 1 capsule by ORAL route every 8 hours for 10 days; 30 capsule; Refills: 0, kb Product Selection Permitted Signatures: Lexie Soria, FIELD ACCOUNT DIRECTOR-C FIELD ACCOUNT DIRECTOR-Ckb Sameer Casillas MD MD kdr Marcie Sarmiento, RN RN bb
[2022-05-27 00:17] VITALS: BP 100/53; TEMP 98.7; O2SAT 99
== END 2022-05-26 23:57 | disposition home or self-care (01) ==
LOC: ER 21:24
PROC: 0U9MXZZ Drainage of Vulva, External Approach (ICD-10-PCS; principal; 2022-05-26)
DX: N76.4 Abscess of vulva (principal); H92.02 Otalgia, left ear
CPT/HCPCS: J2001

== ENCOUNTER 2024-11-02 19:41 | Emergency (ER) | payer BC, SELFPAY ==
--- NOTE | 2024-11-02 20:50 | EDPHYS ---
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 - Infectious Disease History:: Denies. - Social history:: Smoking status: Patient denies any tobacco usage or history of. Vital Signs: 19:59 BP 117 / 85; Pulse 66; Resp 16; Temp 98.1; Pulse Ox 100% on R/A; Weight 68.04 kg; dd2 Height 5 ft. 7 in. ; Pain 8/10; 19:59 Body Mass Index 23.49 (68.04 kg, 170.18 cm) dd2 19:59 Pain Scale: Adult dd2 MDM: 19:57 Medical Screening Exam initiated sb4 11/02 20:21 Order name: IV Saline Lock sb4 11/02 20:21 Order name: Labs collected and sent sb4 Administered Medications: No medications were administered Disposition Summary: 11/02/24 20:49 Eloped Notes: Disposition: before being seen by provider sb4 Reason: unknown sb4 Condition: Undetermined sb4 Signatures: Dispatcher [employer] EDJulia Gomez PA-C PA-C sb4 TACHO MURPHY RN RN dd2 Corrections: (The following items were deleted from the chart) 20:21 20:21 CBC+H.LAB.BRZ ordered. EDMS EDMS 20:21 20:21 COMPREHENSIVE METABOLIC PANEL+C.LAB.BRZ ordered. EDMS EDMS 20:21 20:21 LIPASE+C.LAB.BRZ ordered. EDMS EDMS 20:21 20:21 Test, Urine+UC.LAB.BRZ ordered. EDMS EDMS 20:21 20:21 UA Rfx Onofre Cult if indicated+U.LAB.BRZ ordered. EDMS EDMS
--- NOTE | 2024-11-02 20:50 | ER ---
Nurse's Notes [facility] Name: Saloni Ireland Age: 39 yrs Sex: Female : 1985 Arrival Date: 11/02/2024 Time: 19:41 Bed IW1 Private MD: Diagnosis: Presentation: 11/02 19:59 Chief complaint: Patient states: LOWER BACK PAIN X1 WEEK, AND BEGAN HAVING LT SIDE AND dd2 LT LOWER ABD PAIN. PT ALSO REPORTS NOT URINATING MUCH USUAL. Coronavirus screen: At this time, the client does not indicate any symptoms associated with coronavirus-19. Ebola Screen: No symptoms or risks identified at this time. Initial Sepsis Screen: Does the patient meet any 2 criteria? No. Patient's initial sepsis screen is negative. Does the patient have a suspected source of infection? No. Patient's initial sepsis screen is negative. Risk Assessment: Do you want to hurt yourself or someone else? Patient reports no desire to harm self or others. Onset of symptoms was October 26, 2024. 19:59 Method Of Arrival: Ambulatory dd2 19:59 Acuity: ROSARIO 3 dd2 Triage Assessment: 20:01 General: Appears in no apparent distress. uncomfortable, Behavior is calm, cooperative, dd2 appropriate for age. Pain: Complains of pain in low back area Pain radiates to posterior aspect of left lateral abdomen and left lower quadrant. GI: Abdomen is non-distended, Reports lower abdominal pain. 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 - Infectious Disease History:: Denies. - Social history:: Smoking status: Patient denies any tobacco usage or history of. Assessment: 20:43 Reassessment: PT CALLED FROM TRIAGE 3 TIMES FOR ROOM PLACEMENT. NO ANSWER AND PT NOT dd2 FOUND. Vital Signs: 19:59 BP 117 / 85; Pulse 66; Resp 16; Temp 98.1; Pulse Ox 100% on R/A; Weight 68.04 kg; dd2 Height 5 ft. 7 in. ; Pain 8/10; 19:59 Body Mass Index 23.49 (68.04 kg, 170.18 cm) dd2 19:59 Pain Scale: Adult dd2 ED Course: 19:43 Patient arrived in ED. mr 19:56 Julia Moody PA-C is PHCP. sb4 19:56 Chino Keenan DO is Attending Physician. sb4 20:01 Triage completed. dd2 20:01 Arm band placed on right wrist. dd2 20:30 Patient's name was called from ER lobby. No response. ha1 20:43 Abbey Salmon is Primary Nurse. cp4 Administered Medications: No medications were administered Outcome: 20:50 Patient left the ED. sb4 Signatures: Renea Ramos, Reg Reg mr Joselin Reyes, RN RN ha1 Julia Moody PA-C PA-C sb4 Abbey Salmon cp4 TACHO MURPHY RN RN dd2
[2024-11-02 21:00] VITALS: BP 117/85; TEMP 98.1; O2SAT 100
== END 2024-11-02 20:50 | disposition left against medical advice (07) ==
LOC: ER 19:41
DX: Z53.21 Procedure and treatment not carried out due to patient leaving prior to being seen by health care provider (principal)
CPT/HCPCS: 99281